=== PATIENT | male | born 1995 | race Caucasian/White ===

== ENCOUNTER 2016-11-26 21:33 | Emergency (ER) | payer OTHER ==
[2016-11-26 21:39] VITALS: RESP 18
[2016-11-26] MEDS ORDERED: KETOROLAC 30 MG/ML 1 ML VIAL IVP STA (22:06)
--- NOTE | 2016-11-26 22:09 | ED ---
Anxiety HPI - General Chief Complaint: Anxiety Stated Complaint: Chest pain/SOB/Anxiety Time Seen by Provider: 11/26/16 21:55 Source: patient, RN notes reviewed Mode of arrival: ambulatory - History of Present Illness Initial Comments: Is a 21-year-old male who presents with complaints of left-sided chest pain sharp in nature 5/10 severity. It is associated with some shortness of breath. He states he's had for about a week it gets worse with deep breathing or movement. He states he is very anxious on the pain comes on. He's had no fevers chills nausea, sweats cough or phlegm production no history of heart disease. Is a smoker we started a stop he started one or 2 cigarettes today from a pack-a-day. MD Complaint: anxiety, shortness of breath, other - Related Data Home Medications: Home Medications Medication Instructions Recorded Confirmed Aspirin 650 mg PO ONCE PRN 11/26/16 11/26/16 Previous Rx's Medication Instructions Recorded Ibuprofen 800 mg PO Q6HR PRN #20 tablet 11/26/16 Allergies/Adverse Reactions: Allergies Allergy/AdvReac Type Severity Reaction Status Date / Time amoxicillin Allergy Rash/Hives Verified 11/26/16 21:49 cat dander Allergy Swelling Verified 11/26/16 21:49 Review of Systems ROS Statement: Those systems with pertinent positive or pertinent negative responses have been documented in the HPI. ROS Other: All systems not noted in ROS Statement are negative. Past Medical History Past Medical History: No Reported History History of Any Multi-Drug Resistant Organisms: None Reported Past Surgical History: No Surgical Hx Reported Past Psychological History: Anxiety, Depression Smoking Status: Current every day smoker Past Alcohol Use History: None Reported Past Drug Use History: Marijuana General Exam - General Exam Comments Initial Comments: This is a well-developed well-nourished awake alert oriented 3 male Limitations: no limitations General appearance: alert, anxious Head exam: Present: atraumatic, normocephalic, normal inspection Eye exam: Present: normal appearance, PERRL, EOMI. Absent: scleral icterus, conjunctival injection, periorbital swelling ENT exam: Present: normal exam, mucous membranes moist Neck exam: Present: normal inspection. Absent: tenderness, meningismus, lymphadenopathy Respiratory exam: Present: normal lung sounds bilaterally, chest wall tenderness (Reproducible tennis palpation over left costochondral margin. Crepitation). Absent: respiratory distress, wheezes, rales, rhonchi, stridor Cardiovascular Exam: Present: regular rate, normal rhythm, normal heart sounds. Absent: systolic murmur, diastolic murmur, rubs, gallop, clicks GI/Abdominal exam: Present: soft, normal bowel sounds. Absent: distended, tenderness, guarding, rebound, rigid Extremities exam: Present: normal inspection, full ROM, normal capillary refill. Absent: tenderness, pedal edema, joint swelling, calf tenderness Back exam: Present: normal inspection Neurological exam: Present: alert, oriented X3, CN II-XII intact Psychiatric exam: Present: normal affect, normal mood Skin exam: Present: warm, dry, intact, normal color. Absent: rash Course Vital Signs 11/26/16 11/26/16 11/26/16 21:36 22:46 23:15 Temperature 98.7 F 97.8 F Pulse Rate 73 67 66 Respiratory 18 18 18 Rate Blood Pressure 126/73 118/68 111/60 O2 Sat by Pulse 99 98 99 Oximetry - Reevaluation(s) Reevaluation #1: 11/26/16 22:09 We did discuss smoking cessation and risks of smoking and the need to stop. This conversation lasted 3.1 minutes. Medical Decision Making - Medical Decision Making I did discuss findings with the patient initially improved the presentation is consistent with chest wall pain/costochondritis. Patient will be discharged home on anti-inflammatories is a follow-up with his doctor and return when necessary - Lab Data Result diagrams: 11/26/16 22:10 11/26/16 22:10 Lab Results 11/26/16 11/26/16 11/26/16 Range/Units 22:10 22:10 22:10 WBC 9.1 (4.0-11.0) k/uL RBC 4.58 (4.30-5.90) m/uL Hgb 12.5 L (13.0-17.5) gm/dL Hct 39.7 (39.0-53.0) % MCV 86.8 (80.0-100.0) fL MCH 27.2 (25.0-35.0) pg MCHC 31.4 (31.0-37.0) g/dL RDW 15.4 (11.5-15.5) % Plt Count 220 (150-450) k/uL Neutrophils % 60 % Lymphocytes % 30 % Monocytes % 4 % Eosinophils % 3 % Basophils % 1 % Neutrophils # 5.5 (1.3-7.7) k/uL Lymphocytes # 2.8 (1.0-4.8) k/uL Monocytes # 0.3 (0-1.0) k/uL Eosinophils # 0.3 (0-0.7) k/uL Basophils # 0.1 (0-0.2) k/uL PT (9.0-12.0) sec INR (<1.1) APTT (22.0-30.0) sec D-Dimer (<0.60) mg/L FEU Sodium 142 (137-145) mmol/L Potassium 4.0 (3.5-5.1) mmol/L Chloride 105 (98-107) mmol/L Carbon Dioxide 27 (22-30) mmol/L Anion Gap 10 mmol/L BUN 9 (9-20) mg/dL Creatinine 0.80 (0.66-1.25) mg/dL Est GFR (MDRD) Af Amer >60 (>60 ml/min/1.73 sqM) Est GFR (MDRD) Non-Af >60 (>60 ml/min/1.73 sqM) Glucose 96 (74-99) mg/dL Calcium 8.9 (8.4-10.2) mg/dL Magnesium 2.1 (1.6-2.3) mg/dL Total Bilirubin 0.2 (0.2-1.3) mg/dL AST 26 (17-59) U/L ALT 40 (21-72) U/L Alkaline Phosphatase 107 (38-126) U/L Total Creatine Kinase 217 H (55-170) U/L CK-MB (CK-2) 0.9 (0.0-2.4) ng/mL CK-MB (CK-2) Rel Index 0.4 Troponin I <0.012 (0.000-0.034) ng/mL Total Protein 6.7 (6.3-8.2) g/dL Albumin 3.9 (3.5-5.0) g/dL 11/26/16 Range/Units 22:10 WBC (4.0-11.0) k/uL RBC (4.30-5.90) m/uL Hgb (13.0-17.5) gm/dL Hct (39.0-53.0) % MCV (80.0-100.0) fL MCH (25.0-35.0) pg MCHC (31.0-37.0) g/dL RDW (11.5-15.5) % Plt Count (150-450) k/uL Neutrophils % % Lymphocytes % % Monocytes % % Eosinophils % % Basophils % % Neutrophils # (1.3-7.7) k/uL Lymphocytes # (1.0-4.8) k/uL Monocytes # (0-1.0) k/uL Eosinophils # (0-0.7) k/uL Basophils # (0-0.2) k/uL PT 10.2 (9.0-12.0) sec INR 1.0 (<1.1) APTT 26.5 (22.0-30.0) sec D-Dimer <0.17 (<0.60) mg/L FEU Sodium (137-145) mmol/L Potassium (3.5-5.1) mmol/L Chloride (98-107) mmol/L Carbon Dioxide (22-30) mmol/L Anion Gap mmol/L BUN (9-20) mg/dL Creatinine (0.66-1.25) mg/dL Est GFR (MDRD) Af Amer (>60 ml/min/1.73 sqM) Est GFR (MDRD) Non-Af (>60 ml/min/1.73 sqM) Glucose (74-99) mg/dL Calcium (8.4-10.2) mg/dL Magnesium (1.6-2.3) mg/dL Total Bilirubin (0.2-1.3) mg/dL AST (17-59) U/L ALT (21-72) U/L Alkaline Phosphatase (38-126) U/L Total Creatine Kinase (55-170) U/L CK-MB (CK-2) (0.0-2.4) ng/mL CK-MB (CK-2) Rel Index Troponin I (0.000-0.034) ng/mL Total Protein (6.3-8.2) g/dL Albumin (3.5-5.0) g/dL - EKG Data -: EKG Interpreted by Ia EKG shows normal: sinus rhythm, axis, intervals, QRS complexes, ST-T waves (EKG shows a sinus rhythm of 65 [place] 128 QRS 90 QT since QTC of 388/403 this is a normal-appearing EKG.) Rate: normal - Radiology Data Radiology results: report reviewed (I did review the imaging and report no acute findings are seen.), image reviewed Disposition Clinical Impression: Costochondritis, acute, Acute chest wall pain Disposition: HOME SELF-CARE Instructions: Generalized Anxiety Disorder (ED), Costochondritis (ED) Prescriptions: Ibuprofen 800 mg PO Q6HR PRN #20 tablet PRN Reason: Pain Referrals: Haseeb Rodriguez MD [Primary Care Provider] - 1-2 days
[2016-11-26 22:33] LABS: Basophils # (A) 0.1 k/uL (0-0.2); Basophils % (A) 1 %; CHCM 32.4; Eosinophils # (A) 0.3 k/uL (0-0.7); Eosinophils % (A) 3 %; HCT 39.7 % (39.0-53.0); HDW 2.68; HGB 12.5 gm/dL (13.0-17.5); Luc # (Auto) 0.17; Luc % (Auto) 2; Lymphocytes # (A) 2.8 k/uL (1.0-4.8); Lymphocytes % (A) 30 %; MCH 27.2 pg (25.0-35.0); MCHC 31.4 g/dL (31.0-37.0); MCV 86.8 fL (80.0-100.0); Mean Platelet Volume 7.7; Monocytes # (A) 0.3 k/uL (0-1.0); Monocytes % (A) 4 %; Neutrophils # (A) 5.5 k/uL (1.3-7.7); Neutrophils % (A) 60 %; RBC 4.58 m/uL (4.30-5.90); RDW 15.4 % (11.5-15.5); WBC 9.1 k/uL (4.0-11.0); WBC (Perox) 9.32
[2016-11-26 22:41] LABS: ALT 40 U/L (21-72); AST 26 U/L (17-59); Alkaline Phosphatase 107 U/L (38-126); Anion Gap 10 mmol/L; Blood Urea Nitrogen 9 mg/dL (9-20); Calcium 8.9 mg/dL (8.4-10.2); Carbon Dioxide 27 mmol/L (22-30); Chloride 105 mmol/L (98-107); Glucose 96 mg/dL (74-99); Magnesium 2.1 mg/dL (1.6-2.3); Non-African American GFR(MDRD) >60 (>60 ml/min/1.73 sqM); Sodium 142 mmol/L (137-145); Total Bilirubin 0.2 mg/dL (0.2-1.3); Total Protein 6.7 g/dL (6.3-8.2)
[2016-11-26 22:45] LABS: Partial Thromboplastin Time 26.5 sec (22.0-30.0); Prothrombin Time 10.2 sec (9.0-12.0)
[2016-11-26 23:06] LABS: Creatine Kinase 217 U/L (55-170)
[2016-11-26 23:17] LABS: Creatine Kinase MB 0.9 ng/mL (0.0-2.4); Troponin I <0.012 ng/mL (0.000-0.034)
[2016-11-27 00:16] VITALS: BP 137/62; PULSE 76; TEMP 97.5
--- NOTE | 2016-11-27 07:20 | XR ---
EXAMINATION TYPE: XR chest 2V DATE OF EXAM: 11/26/2016 COMPARISON: NONE HISTORY: Chest pain and anxiety. TECHNIQUE: Frontal and lateral views of the chest are obtained. FINDINGS: There is no focal air space opacity, pleural effusion, or pneumothorax seen. The cardiac silhouette size is within normal limits. The osseous structures are intact. IMPRESSION: No acute cardiopulmonary process.
== END 2016-11-27 00:16 | disposition home or self-care (01) ==
LOC: EC 21:33
DX: M94.0 Chondrocostal junction syndrome [Tietze] (principal); F17.210 Nicotine dependence, cigarettes, uncomplicated; Z88.0 Allergy status to penicillin; Z91.09 Other allergy status, other than to drugs and biological substances
CPT/HCPCS: 99284; 96374; 36415; 93005; 85379; 80053; 82550; 82553; 83735; 84484; 85025; 85610; 85730; 71020; J1885

== ENCOUNTER 2018-10-07 17:59 | Emergency (ER) | payer OTHER ==
[2018-10-07 18:14] VITALS: BP 125/69; PULSE 61; RESP 18; TEMP 98.7
[2018-10-07] MEDS ORDERED: DIAZEPAM 5 MG/ML 2 ML INJ IM STA (18:46)
[2018-10-07] MEDS ORDERED: KETOROLAC 60 MG/2 ML VIAL IM STA (18:46)
--- NOTE | 2018-10-07 18:53 | ED ---
Back Pain HPI - General Chief Complaint: Back Pain/Injury Stated Complaint: Back pain Time Seen by Provider: 10/07/18 18:19 Source: patient, RN notes reviewed Mode of arrival: ambulatory Limitations: no limitations - History of Present Illness Initial Comments: This a 22-year-old male presents emergency Department with chief complaint of back pain. Patient states he was carrying a heavy bag groceries in his right arm states that he started he was running when he states he twisted awkwardly and states she's had mid to low back pain for last 2 days. Patient was seen at [facility] yesterday was given Robaxin and naproxen. Patient states he has not helped. Patient states pain is unbearable. He did state the Toradol helped for short period of time. Patient denies any bowel bladder incontinence or retention. Denies any abdominal pain no nausea vomiting. Patient has not been doing any topicals, no heat and ice stretching. He did see a chiropractor who did one adjustment felt that it made it worse. Denies any chest pain or shortness of breath. - Related Data Home Medications Medication Instructions Recorded Confirmed Aspirin 650 mg PO ONCE PRN 11/26/16 11/26/16 Previous Rx's Medication Instructions Recorded Ibuprofen 800 mg PO Q6HR PRN #20 tablet 11/26/16 Cyclobenzaprine [Flexeril] 10 mg PO TID PRN #15 tab 10/07/18 Hydrocodone/Acetaminophen [[place] 1 tab PO Q6HR PRN #12 tab 10/07/18 5-325] Ketorolac [Toradol] 10 mg PO Q8HR #15 tab 10/07/18 Allergies Allergy/AdvReac Type Severity Reaction Status Date / Time amoxicillin Allergy Rash/Hives Verified 10/07/18 18:14 cat dander Allergy Swelling Verified 10/07/18 18:14 Review of Systems ROS Statement: Those systems with pertinent positive or pertinent negative responses have been documented in the HPI. ROS Other: All systems not noted in ROS Statement are negative. Past Medical History Past Medical History: No Reported History History of Any Multi-Drug Resistant Organisms: None Reported Past Surgical History: No Surgical Hx Reported Past Psychological History: Anxiety, Depression Smoking Status: Current some day smoker Past Alcohol Use History: None Reported Past Drug Use History: Marijuana General Exam Limitations: no limitations General appearance: alert, in no apparent distress Head exam: Present: atraumatic, normocephalic, normal inspection Neck exam: Present: normal inspection. Absent: tenderness, meningismus, lymphadenopathy Respiratory exam: Present: normal lung sounds bilaterally. Absent: respiratory distress, wheezes, rales, rhonchi, stridor Cardiovascular Exam: Present: regular rate, normal rhythm, normal heart sounds. Absent: systolic murmur, diastolic murmur, rubs, gallop, clicks GI/Abdominal exam: Present: soft, normal bowel sounds. Absent: distended, tenderness, guarding, rebound, rigid Back exam: Present: full ROM (Moderate discomfort), tenderness (Right mid to low back), paraspinal tenderness (Lower thoracic to lumbar), other (Normal straight leg raise). Absent: vertebral tenderness Neurological exam: Present: alert, oriented X3, CN II-XII intact, reflexes normal. Absent: motor sensory deficit Course Vital Signs 10/07/18 18:12 Temperature 98.7 F Pulse Rate 61 Respiratory 18 Rate Blood Pressure 125/69 O2 Sat by Pulse 98 Oximetry Medical Decision Making - Medical Decision Making 22-year-old male presented for mid to low back pain. Patient has mechanical strain, muscle spasms. Patient we given Toradol and Valium emergency department. Patient we discharged with Flexeril, [place] short course, Toradol orally. Return parameters were discussed. Patient has no red flag symptoms. Disposition Clinical Impression: Back strain, Back pain Disposition: HOME SELF-CARE Condition: Stable Instructions (If sedation given, give patient instructions): Acute Low Back Pain (ED) Additional Instructions: Please return to the Emergency Department if symptoms worsen or any other concerns. Prescriptions: Cyclobenzaprine [Flexeril] 10 mg PO TID PRN #15 tab PRN Reason: Muscle Spasm Hydrocodone/Acetaminophen [[place] 5-325] 1 tab PO Q6HR PRN #12 tab PRN Reason: Pain Ketorolac [Toradol] 10 mg PO Q8HR #15 tab Is patient prescribed a controlled substance at d/c from ED?: No Referrals: Haseeb Rodriguez MD [Primary Care Provider] - 1-2 days Time of Disposition: 18:52
== END 2018-10-07 19:17 | disposition home or self-care (01) ==
LOC: EC 17:59
DX: S39.012A Strain of muscle, fascia and tendon of lower back, initial encounter (principal); F17.200 Nicotine dependence, unspecified, uncomplicated; Z88.0 Allergy status to penicillin; Z91.048 Other nonmedicinal substance allergy status; X50.1XXA Overexertion from prolonged static or awkward postures, initial encounter; Y93.02 Activity, running
CPT/HCPCS: 99283; 96372 ×2; J3360; J1885

== ENCOUNTER 2019-11-06 02:51 | Emergency (ER) | payer OTHER ==
[2019-11-06 03:04] VITALS: BP 111/69; PULSE 80; RESP 16; TEMP 97.8
--- NOTE | 2019-11-06 03:18 | ED ---
Alcohol HPI - General Chief Complaint: Alcohol Stated Complaint: etoh Time Seen by Provider: 11/06/19 02:54 Source: EMS Mode of arrival: EMS Limitations: altered mental status - History of Present Illness Initial Comments: This patient is 24-year-old man brought by EMS to be evaluated for suspected alcohol intoxication. The patient had been involved in a Wager as to whether he did finish a bottle of tequila, which he states that he did. He then became very intoxicated and friends called EMS. The patient denies having any fall or injuries. He denies complaint other than nausea and vomiting. MD Complaint: alcohol intoxication Last Drink: just [employer] Previous Visits for Alcohol Intoxication?: No Recent Trauma: No Associated Symptoms: vomiting Treatments Prior to Arrival: none Chronic Alcohol Use: No - Related Data Previous Rx's Medication Instructions Recorded Cyclobenzaprine [Flexeril] 10 mg PO TID PRN #15 tab 10/07/18 Hydrocodone/Acetaminophen [[place] 1 tab PO Q6HR PRN #12 tab 10/07/18 5-325] Ketorolac [Toradol] 10 mg PO Q8HR #15 tab 10/07/18 Allergies Allergy/AdvReac Type Severity Reaction Status Date / Time amoxicillin Allergy Rash/Hives Verified 11/06/19 03:26 cat dander Allergy Swelling Verified 11/06/19 03:26 Review of Systems ROS Statement: Those systems with pertinent positive or pertinent negative responses have been documented in the HPI. ROS Other: All systems not noted in ROS Statement are negative. Limitations: ROS unobtainable due to patients medical condition (Intoxication) Respiratory: Denies: dyspnea Cardiovascular: Denies: chest pain Gastrointestinal: Reports: vomiting. Denies: abdominal pain Musculoskeletal: Denies: back pain Neurological: Denies: headache Past Medical History Past Medical History: No Reported History History of Any Multi-Drug Resistant Organisms: None Reported Past Surgical History: No Surgical Hx Reported Past Psychological History: Anxiety, Depression Smoking Status: Current some day smoker Past Alcohol Use History: None Reported Past Drug Use History: Marijuana General Exam General appearance: in no apparent distress, appears intoxicated Head exam: Present: atraumatic, normocephalic, normal inspection Eye exam: Present: normal appearance, PERRL, nystagmus. Absent: scleral icterus, conjunctival injection ENT exam: Present: normal oropharynx Neck exam: Present: normal inspection, full ROM. Absent: tenderness Respiratory exam: Present: normal lung sounds bilaterally. Absent: respiratory distress, wheezes, rales, rhonchi, stridor, chest wall tenderness Cardiovascular Exam: Present: regular rate, normal rhythm, normal heart sounds. Absent: systolic murmur, diastolic murmur, rubs, gallop GI/Abdominal exam: Present: soft. Absent: distended, tenderness, guarding, rebound, pulsatile mass Extremities exam: Present: normal inspection, normal capillary refill. Absent: pedal edema, calf tenderness Back exam: Present: normal inspection. Absent: CVA tenderness (R), CVA tenderness (L), vertebral tenderness Neurological exam: Present: altered, CN II-XII intact, other (Patient is somnolent but arousable. GCS is 14.). Absent: motor sensory deficit Skin exam: Present: warm, dry, intact, normal color. Absent: rash Course Vital Signs 11/06/19 02:58 Temperature 97.8 F Pulse Rate 80 Respiratory 16 Rate Blood Pressure 111/69 O2 Sat by Pulse 96 Oximetry Disposition Clinical Impression: Alcoholic intoxication Disposition: HOME SELF-CARE Condition: Good Instructions (If sedation given, give patient instructions): Alcohol Intoxication (ED) Is patient prescribed a controlled substance at d/c from ED?: No Referrals: Haseeb Rodriguez MD [Primary Care Provider] - 1-2 days
== END 2019-11-06 05:42 | disposition home or self-care (01) ==
LOC: EC 02:51
DX: F10.129 Alcohol abuse with intoxication, unspecified (principal); F17.200 Nicotine dependence, unspecified, uncomplicated; Z88.0 Allergy status to penicillin; Z91.048 Other nonmedicinal substance allergy status
CPT/HCPCS: 99284

== ENCOUNTER 2021-05-19 17:50 | Emergency (ER) | payer OTHER ==
[2021-05-19 18:47] VITALS: TEMP 98.9
[2021-05-19] MEDS ORDERED: KETOROLAC 15 MG/ML 1 ML VIAL IM STA (19:00)
[2021-05-19] MEDS ORDERED: DEXAMETHASONE SOD PHOSPHATE 10 MG/ML 1 ML VIAL IM STA (19:00)
--- NOTE | 2021-05-19 19:07 | ED ---
General Adult HPI - General Chief complaint: ENT Stated complaint: fever, chills, sore throat Time Seen by Provider: 05/19/21 18:53 Source: patient Mode of arrival: ambulatory Limitations: no limitations - History of Present Illness Initial comments: 25 year-old male patient presents to the emergency department for evaluation of sore throat and swollen tonsils. States that he has been having trouble for the last month. He has completed two courses of antibiotics he'll feel better for a couple of days then get sick again. States that he has had COVID twice and seems like he gets sick easier after his second episode. He states he did have fever 102 degrees earlier today. Took 1g Tylenol last at 4pm. Denies any vomiting, abdominal pain, headache, or rash. States he does have body aches and chills. - Related Data Home Medications Medication Instructions Recorded Confirmed Acetaminophen [Tylenol] 2,000 mg PO BID PRN 05/19/21 05/19/21 Previous Rx's Medication Instructions Recorded Clindamycin [Cleocin] 450 mg PO Q6H #120 cap 05/19/21 Allergies Allergy/AdvReac Type Severity Reaction Status Date / Time amoxicillin Allergy Rash/Hives Verified 05/19/21 20:51 cat dander Allergy Swelling Verified 05/19/21 20:51 Review of Systems ROS Statement: Those systems with pertinent positive or pertinent negative responses have been documented in the HPI. ROS Other: All systems not noted in ROS Statement are negative. Past Medical History Past Medical History: No Reported History History of Any Multi-Drug Resistant Organisms: None Reported Past Surgical History: No Surgical Hx Reported Past Psychological History: Anxiety, Depression Smoking Status: Vaper Past Alcohol Use History: None Reported Past Drug Use History: Marijuana General Exam Limitations: no limitations General appearance: alert, in no apparent distress, other (This is a well- developed, well-nourished adult male in no acute distress.) ENT exam: Present: mucous membranes moist. Absent: normal oropharynx (Bilateral tonsillar hypertrophy, erythema, exudate noted. Tonsils are symmetric. Uvula is midline. Patient does have hot potato voice.) Neck exam: Present: normal inspection. Absent: tenderness, meningismus, lymphadenopathy Respiratory exam: Present: normal lung sounds bilaterally. Absent: respiratory distress, wheezes, rales, rhonchi, stridor Cardiovascular Exam: Present: regular rate, normal rhythm, normal heart sounds. Absent: systolic murmur, diastolic murmur, rubs, gallop, clicks GI/Abdominal exam: Present: soft, normal bowel sounds. Absent: distended, tenderness, guarding, rebound, rigid Neurological exam: Present: alert, oriented X3, CN II-XII intact Psychiatric exam: Present: normal affect, normal mood Skin exam: Present: warm, dry, intact, normal color. Absent: rash Course Vital Signs 05/19/21 05/19/21 18:45 22:10 Temperature 98.9 F Pulse Rate 90 72 Respiratory 16 18 Rate Blood Pressure 99/71 107/78 O2 Sat by Pulse 97 96 Oximetry Medical Decision Making - Medical Decision Making 25-year-old male patient presented for evaluation of swollen tonsils and sore throat for the last 2 days. Physical examination did reveal bilateral tonsillar hypertrophy and exudate. He is afebrile at this time the did have fever earlier today. He tested negative for strep and Covid. He did have a negative heterophile as well. CT of the soft tissues neck were obtained and showed no acute abnormalities. This is the patient's third tonsil infection over the last month. He'll be started on clindamycin discharge follow-up with ENT specialist. Return parameters were discussed in detail. He verbalizes understanding and agrees with this plan. My attending is Dr. Shi. - Lab Data Lab Results 05/19/21 05/19/21 05/19/21 Range/Units 18:49 19:26 19:31 Coronavirus (PCR) Not Detected (Not Detectd) Heterophile Antibody Negative (Negative) Group A Strep Rapid Negative (Negative) - Radiology Data Radiology results: report reviewed, image reviewed CT soft tissue neck with contrast was obtained. Report was reviewed in its entirety. Impression by Dr. Harrison shows no significant abnormality. Disposition Clinical Impression: Tonsillitis Disposition: HOME SELF-CARE Condition: Good Instructions (If sedation given, give patient instructions): Tonsillitis (ED) Additional Instructions: Apply antibiotic prescription in full. Follow-up with ENT specialist as soon as possible. Return for any new, worsening, or concerning symptoms. If local ENT is unable to see you soon please call [facility] for appointment: [phone]. Prescriptions: Clindamycin [Cleocin] 450 mg PO Q6H #120 cap Is patient prescribed a controlled substance at d/c from ED?: No Referrals: Carlo Lanier, [Doctor of Osteopathic Medicine] - 1-2 days None,Stated [Primary Care Provider] - 1-2 days Time of Disposition: 21:55
--- NOTE | 2021-05-19 21:11 | CT ---
EXAMINATION TYPE: CT soft tissue neck w con DATE OF EXAM: 05/19/2021 9:02 PM COMPARISON: None available. HISTORY: Sore throat x1 month. CT DLP: 629.3 mGycm Automated exposure control for dose reduction was used. CONTRAST: CT scan of the neck is performed following with IV Contrast, patient injected with 100ml mL of Isovue 300. Axial images are obtained, coronal and sagittal reformatted images are reviewed. FINDINGS: The parapharyngeal, retropharyngeal and prevertebral spaces appear grossly preserved. The parotid and submandibular glands are within normal limits. Scattered borderline to mildly enlarge d cervical lymph nodes, likely reactive. The visualized airway and upper lungs grossly unremarkable. No acute osseous abnormality. IMPRESSION: No significant abnormality.
[2021-05-19] MEDS ORDERED: CLINDAMYCIN 150 MG CAP PO STA (21:56)
[2021-05-19 22:11] VITALS: BP 107/78; PULSE 72; RESP 18
== END 2021-05-19 22:12 | disposition home or self-care (01) ==
LOC: EC 17:50
DX: J03.90 Acute tonsillitis, unspecified (principal); Z20.822 Contact with and (suspected) exposure to COVID-19; F17.290 Nicotine dependence, other tobacco product, uncomplicated; F12.90 Cannabis use, unspecified, uncomplicated
CPT/HCPCS: 36415; 86308; 87081; 87430; 87635; 70491; 99284; 96372 ×2; J1100; J1885

== ENCOUNTER → 2021-11-10 | Outpatient (CLI) | payer OTHER ==
--- NOTE | 2021-11-10 14:53 | XR ---
EXAM TYPE: LUMBAR SPINE X RAY SERIES COMPARISON: NONE HISTORY: Pain TECHNIQUE: 3 views are submitted. FINDINGS: Alignment is anatomic. The pedicles are intact. The transverse processes are intact. There is no s pondylolysis or spondylolisthesis. 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 IMPRESSION: 1. No acute process. Correlate with MRI as clinically warranted.
== END | disposition home or self-care (01) ==
LOC: RADXRMAIN 14:32
PROVIDERS: ATTEND Emergency Medicine
DX: M54.50 Low back pain, unspecified (principal)
CPT/HCPCS: 72100

== ENCOUNTER 2023-07-06 05:48 | Emergency (ER) | payer OTHER ==
--- NOTE | 2023-07-06 06:32 | ED ---
General Adult HPI - General Stated complaint: DELMAR, low O2 Time Seen by Provider: 07/06/23 06:30 Source: patient, RN notes reviewed Mode of arrival: ambulatory Limitations: no limitations - History of Present Illness Initial comments: 27-year-old male presents emergency department with chief complaint of cough congestion shortness of breath. Patient states around midnight states he thought he was having some anxiety issues which she has had in the past but states that he noticed he had a fever, sweating, nausea and a headache. - Related Data Home Medications Medication Instructions Recorded Confirmed Levothyroxine Sodium [Synthroid] 50 mcg PO DAILY 07/07/22 07/06/23 Cetirizine HCl [Zyrtec] 10 mg PO DAILY PRN 07/06/23 07/06/23 Cholecalciferol (Vitamin D3) 75 mcg PO DAILY 07/06/23 07/06/23 [Vitamin D3 (3000 Iu)] Previous Rx's Medication Instructions Recorded Azithromycin [Zithromax Z Pack] 0 tab PO DIRECTED #6 tab 07/06/23 Allergies Allergy/AdvReac Type Severity Reaction Status Date / Time amoxicillin Allergy Rash/Hives Verified 07/06/23 11:02 cat dander Allergy Swelling Verified 07/06/23 11:02 Review of Systems ROS Statement: Those systems with pertinent positive or pertinent negative responses have been documented in the HPI. ROS Other: All systems not noted in ROS Statement are negative. Past Medical History Past Medical History: Thyroid Disorder Additional Past Medical History / Comment(s): history of occasional palpitations and fast heart rate, has seen DR for this and it is benign History of Any Multi-Drug Resistant Organisms: None Reported Past Surgical History: Tonsillectomy Past Anesthesia/Blood Transfusion Reactions: No Reported Reaction Past Psychological History: No Psychological Hx Reported Smoking Status: Former smoker, Vaper Past Alcohol Use History: Occasional Additional Past Alcohol Use History / Comment(s): smoked from the age of [age] Past Drug Use History: None Reported General Exam - General Exam Comments Initial Comments: Visual Physical Exam Vital signs reviewed General: Well-appearing, nontoxic, no acute distress. Head: Normocephalic, atraumatic Eyes: PERRLA, EOMI ENT: Airway patent Chest: Nonlabored breathing Skin: No visual rash, normal skin tone Neuro: Alert and oriented 3 Musculoskeletal: No gross abnormalities Limitations: no limitations General appearance: alert, in no apparent distress Head exam: Present: atraumatic, normocephalic, normal inspection Eye exam: Present: normal appearance, PERRL, EOMI. Absent: scleral icterus, conjunctival injection, periorbital swelling ENT exam: Present: normal exam, normal oropharynx, mucous membranes moist Neck exam: Present: normal inspection, full ROM. Absent: tenderness, meningismus, lymphadenopathy Respiratory exam: Present: normal lung sounds bilaterally. Absent: respiratory distress, wheezes, rales, rhonchi, stridor Cardiovascular Exam: Present: regular rate, normal rhythm, normal heart sounds. Absent: systolic murmur, diastolic murmur, rubs, gallop, clicks GI/Abdominal exam: Present: soft, normal bowel sounds. Absent: distended, tenderness, guarding, rebound, rigid Course Vital Signs 07/06/23 07/06/23 07/06/23 06:51 07:54 08:54 Temperature 98.1 F Pulse Rate 113 H 99 Respiratory 18 22 20 Rate Blood Pressure 97/66 99/54 O2 Sat by Pulse 96 95 Oximetry 07/06/23 07/06/23 07/06/23 10:58 11:31 12:42 Temperature 98.2 F Pulse Rate 82 89 78 Respiratory 18 20 18 Rate Blood Pressure 88/45 114/69 113/69 O2 Sat by Pulse 97 94 L 96 Oximetry 07/06/23 13:55 Temperature 98.1 F Pulse Rate 76 Respiratory 18 Rate Blood Pressure 112/72 O2 Sat by Pulse 96 Oximetry EKG Findings - EKG Comments: EKG Findings:: EKG Amira-A: 08 sinus rhythm rate 94 WA 140 QRS 98 QT/QTc 333/385 - EKG Results: EKG: interpreted by YANICK Medical Decision Making - Medical Decision Making I completed the quick note portion of this chart signed Tahir Morales PA-C Was pt. sent in by a medical professional or institution ([facility], FUNERAL PLANNING COUNSELOR, urgent care, hospital, or retirement...) When possible be specific @ -No Did you speak to anyone other than the patient for history (EMS, parent, family, police, friend...)? What history was obtained from this source @ -No Did you review nursing and triage notes (agree or disagree)? Why? @ -I reviewed and agree with nursing and triage notes Were old charts reviewed (outside hosp., previous admission, EMS record, old EKG, old radiological studies, urgent care reports/EKG's, retirement records)? Report findings @ -No old charts were reviewed Differential Diagnosis (chest pain, altered mental status, abdominal pain women, abdominal pain men, vaginal bleeding, weakness, fever, dyspnea, syncope, headache, dizziness, GI bleed, back pain, seizure, CVA, palpatations, mental health, musculoskeletal)? @ -COVID 19, RSV, influenza, pneumonia, acute bronchitis, URI, this list is not all inclusive EKG interpreted by me (3pts min.). @ -As above X-rays interpreted by me (1pt min.). @ -Chest x-ray shows no acute cardiopulmonary process CT interpreted by me (1pt min.). @ -CT chest angio negative for PE no acute findings, CT abdomen pelvis no evidence of acute intra-abdominal process there is noted splenomegaly U/S interpreted by me (1pt. min.). @ -None done What testing was considered but not performed or refused? (CT, X-rays, U/S, labs)? Why? @ -None What meds were considered but not given or refused? Why? @ -None Did you discuss the management of the patient with other professionals (professionals i.e. , PA, FUNERAL PLANNING COUNSELOR, lab, RT, psych nurse, group social worker, record changer assembler, teacher, child support case officer, residential case manager)? Give summary @ -No Was smoking cessation discussed for >3mins.? @ -No Was critical care preformed (if so, how long)? @ -No Were there social determinants of health that impacted care today? How? (H omelessness, low income, unemployed, alcoholism, drug addiction, transportation, low edu. Level, literacy, decrease access to med. care, custodial, rehab)? @ -No Was there de-escalation of care discussed even if they declined (Discuss DNR or withdrawal of care, Hospice)? DNR status @ -No What co-morbidities impacted this encounter? (DM, HTN, Smoking, COPD, CAD, Cancer, CVA, ARF, Chemo, Hep., AIDS, mental health diagnosis, sleep apnea, morbid obesity)? @ -[Anxiety Was patient admitted / discharged? Hospital course, mention meds given and route, prescriptions, significant lab abnormalities, going to OR and other pertinent info. @ discharge patient's chest x-ray, viral swabs unremarkable EKG shows no acute changes. Patient significant other at home has similar symptoms with fever, chills and bodyaches. Believe this is a viral URI patient will be discharged in stable condition return pressure discussed. Patient to have full workup including labs, CT with no acute findings. Blood pressure is improved. Patient states he feels greatly improved. Patient feels comfortable with discharge ret urn plans were discussed. Undiagnosed new problem with uncertain prognosis? @ -[No Drug Therapy requiring intensive monitoring for toxicity (Heparin, Nitro, Insulin, Cardizem)? @ -No Were any procedures done? @ -No Diagnosis/symptom? @ -[Viral URI Acute, or Chronic, or Acute on Chronic? @ -Acute Uncomplicated (without systemic symptoms) or Complicated (systemic symptoms)? @ -[uncomplicated Side effects of treatment? @ -No Exacerbation, Progression, or Severe Exacerbation? @ -No Poses a threat to life or bodily function? How? (Chest pain, [place], [place], pneumonia, PE, COPD, DKA, ARF, appy, cholecystitis, CVA, Diverticulitis, Homicidal, Suicidal, threat to staff... and all critical care pts) @ -No - Lab Data Result diagrams: 07/06/23 08:49 07/06/23 08:49 Lab Results 07/06/23 07/06/23 07/06/23 Range/Units 06:46 08:49 08:49 WBC 19.8 H (3.8-10.6) k/uL RBC 4.87 (4.30-5.90) m/uL Hgb 13.7 (13.0-17.5) gm/dL Hct 39.8 (39.0-53.0) % MCV 81.7 (80.0-100.0) fL MCH 28.2 (25.0-35.0) pg MCHC 34.5 (31.0-37.0) g/dL RDW 13.7 (11.5-15.5) % Plt Count 236 (150-450) k/uL MPV 7.0 Neutrophils % 90 % Lymphocytes % 7 % Monocytes % 2 % Eosinophils % 1 % Basophils % 0 % Neutrophils # 17.9 H (1.3-7.7) k/uL Lymphocytes # 1.3 (1.0-4.8) k/uL Monocytes # 0.4 (0-1.0) k/uL Eosinophils # 0.1 (0-0.7) k/uL Basophils # 0.1 (0-0.2) k/uL Sodium 136 L (137-145) mmol/L Potassium 4.1 (3.5-5.1) mmol/L Chloride 104 (98-107) mmol/L Carbon Dioxide 23 (22-30) mmol/L Anion Gap 9 mmol/L BUN 13 (9-20) mg/dL Creatinine 0.76 (0.66-1.25) mg/dL Est GFR (CKD-EPI)AfAm >90 (>60 ml/min/1.73 sqM) Est GFR (CKD-EPI)NonAf >90 (>60 ml/min/1.73 sqM) Glucose 103 H (74-99) mg/dL Plasma Lactic Acid Gil (0.7-2.0) mmol/L Calcium 9.0 (8.4-10.2) mg/dL Total Bilirubin 0.6 (0.2-1.3) mg/dL AST 22 (17-59) U/L ALT 25 (4-49) U/L Alkaline Phosphatase 106 (38-126) U/L Troponin I (0.000-0.034) ng/mL Total Protein 7.4 (6.3-8.2) g/dL Albumin 4.2 (3.5-5.0) g/dL Urine Color Urine Appearance (Clear) Urine pH (5.0-8.0) Ur Specific Barnes (1.001-1.035) Urine Protein (Negative) Urine Glucose (UA) (Negative) Urine Ketones (Negative) Urine Blood (Negative) Urine Nitrite (Negative) Urine Bilirubin (Negative) Urine Urobilinogen (<2.0) mg/dL Ur Leukocyte Esterase (Negative) Heterophile Antibody (Negative) Influenza Type A (PCR) Not Detected (Not Detectd) Influenza Type B (PCR) Not Detected (Not Detectd) RSV (PCR) Not Detected (Not Detectd) SARS-CoV-2 (PCR) Not Detected (Not Detectd) 07/06/23 07/06/23 07/06/23 Range/Units 08:49 08:49 08:49 WBC (3.8-10.6) k/uL RBC (4.30-5.90) m/uL Hgb (13.0-17.5) gm/dL Hct (39.0-53.0) % MCV (80.0-100.0) fL MCH (25.0-35.0) pg MCHC (31.0-37.0) g/dL RDW (11.5-15.5) % Plt Count (150-450) k/uL MPV Neutrophils % % Lymphocytes % % Monocytes % % Eosinophils % % Basophils % % Neutrophils # (1.3-7.7) k/uL Lymphocytes # (1.0-4.8) k/uL Monocytes # (0-1.0) k/uL Eosinophils # (0-0.7) k/uL Basophils # (0-0.2) k/uL Sodium (137-145) mmol/L Potassium (3.5-5.1) mmol/L Chloride (98-107) mmol/L Carbon Dioxide (22-30) mmol/L Anion Gap mmol/L BUN (9-20) mg/dL Creatinine (0.66-1.25) mg/dL Est GFR (CKD-EPI)AfAm (>60 ml/min/1.73 sqM) Est GFR (CKD-EPI)NonAf (>60 ml/min/1.73 sqM) Glucose (74-99) mg/dL Plasma Lactic Acid Gil 1.3 (0.7-2.0) mmol/L Calcium (8.4-10.2) mg/dL Total Bilirubin (0.2-1.3) mg/dL AST (17-59) U/L ALT (4-49) U/L Alkaline Phosphatase (38-126) U/L Troponin I <0.012 (0.000-0.034) ng/mL Total Protein (6.3-8.2) g/dL Albumin (3.5-5.0) g/dL Urine Color Urine Appearance (Clear) Urine pH (5.0-8.0) Ur Specific Barnes (1.001-1.035) Urine Protein (Negative) Urine Glucose (UA) (Negative) Urine Ketones (Negative) Urine Blood (Negative) Urine Nitrite (Negative) Urine Bilirubin (Negative) Urine Urobilinogen (<2.0) mg/dL Ur Leukocyte Esterase (Negative) Heterophile Antibody Negative (Negative) Influenza Type A (PCR) (Not Detectd) Influenza Type B (PCR) (Not Detectd) RSV (PCR) (Not Detectd) SARS-CoV-2 (PCR) (Not Detectd) 07/06/23 Range/Units 10:18 WBC (3.8-10.6) k/uL RBC (4.30-5.90) m/uL Hgb (13.0-17.5) gm/dL Hct (39.0-53.0) % MCV (80.0-100.0) fL MCH (25.0-35.0) pg MCHC (31.0-37.0) g/dL RDW (11.5-15.5) % Plt Count (150-450) k/uL MPV Neutrophils % % Lymphocytes % % Monocytes % % Eosinophils % % Basophils % % Neutrophils # (1.3-7.7) k/uL Lymphocytes # (1.0-4.8) k/uL Monocytes # (0-1.0) k/uL Eosinophils # (0-0.7) k/uL Basophils # (0-0.2) k/uL Sodium (137-145) mmol/L Potassium (3.5-5.1) mmol/L Chloride (98-107) mmol/L Carbon Dioxide (22-30) mmol/L Anion Gap mmol/L BUN (9-20) mg/dL Creatinine (0.66-1.25) mg/dL Est GFR (CKD-EPI)AfAm (>60 ml/min/1.73 sqM) Est GFR (CKD-EPI)NonAf (>60 ml/min/1.73 sqM) Glucose (74-99) mg/dL Plasma Lactic Acid Gil (0.7-2.0) mmol/L Calcium (8.4-10.2) mg/dL Total Bilirubin (0.2-1.3) mg/dL AST (17-59) U/L ALT (4-49) U/L Alkaline Phosphatase (38-126) U/L Troponin I (0.000-0.034) ng/mL Total Protein (6.3-8.2) g/dL Albumin (3.5-5.0) g/dL Urine Color Colorless Urine Appearance Clear (Clear) Urine pH 5.0 (5.0-8.0) Ur Specific Barnes 1.003 (1.001-1.035) Urine Protein Negative (Negative) Urine Glucose (UA) Negative (Negative) Urine Ketones Negative (Negative) Urine Blood Negative (Negative) Urine Nitrite Negative (Negative) Urine Bilirubin Negative (Negative) Urine Urobilinogen <2.0 (<2.0) mg/dL Ur Leukocyte Esterase Negative (Negative) Heterophile Antibody (Negative) Influenza Type A (PCR) (Not Detectd) Influenza Type B (PCR) (Not Detectd) RSV (PCR) (Not Detectd) SARS-CoV-2 (PCR) (Not Detectd) Disposition Clinical Impression: URI (upper respiratory infection), Leukocytosis Disposition: HOME SELF-CARE Condition: Stable Instructions (If sedation given, give patient instructions): Upper Respiratory Infection (ED) Additional Instructions: Please return to the Emergency Department if symptoms worsen or any other concerns. Prescriptions: Azithromycin [Zithromax Z Pack] 0 tab PO DIRECTED #6 tab Is patient prescribed a controlled substance at d/c from ED?: No Referrals: Lux Dias MD [Primary Care Provider] - 1-2 days Time of Disposition: 13:45
--- NOTE | 2023-07-06 07:22 | XR ---
EXAMINATION TYPE: XR chest 2V DATE OF EXAM: 07/06/2023 COMPARISON: 11/26/2016 HISTORY: Chest pain TECHNIQUE: Frontal and lateral views of the chest are obtained. FINDINGS: There is no focal air space opacity. No evidence for pneumothorax. No pleural effusion. The cardiac silhouette size is within normal limits. The osseous structures are grossly intact. IMPRESSION: 1. No acute cardiopulmonary process.
[2023-07-06] MEDS: SODIUM CHLORIDE 0.9% 2,000 ML IV ONE (09:02)
[2023-07-06 09:42] LABS: Basophils # (A) 0.1 k/uL (0-0.2); Basophils % (A) 0 %; Eosinophils # (A) 0.1 k/uL (0-0.7); Eosinophils % (A) 1 %; HCT 39.8 % (39.0-53.0); HGB 13.7 gm/dL (13.0-17.5); Lymphocytes # (A) 1.3 k/uL (1.0-4.8); Lymphocytes % (A) 7 %; MCH 28.2 pg (25.0-35.0); MCHC 34.5 g/dL (31.0-37.0); MCV 81.7 fL (80.0-100.0); Monocytes # (A) 0.4 k/uL (0-1.0); Monocytes % (A) 2 %; Neutrophils # (A) 17.9 k/uL (1.3-7.7); Neutrophils % (A) 90 %; Platelet Count 236 k/uL (150-450); RBC 4.87 m/uL (4.30-5.90); RDW 13.7 % (11.5-15.5); WBC 19.8 k/uL (3.8-10.6)
[2023-07-06 09:46] LABS: African American GFR (CKD) >90 (>60 ml/min/1.73 sqM); Albumin 4.2 g/dL (3.5-5.0); Carbon Dioxide 23 mmol/L (22-30); Non-African American GFR(CKD) >90 (>60 ml/min/1.73 sqM)
[2023-07-06 09:53] LABS: ALT 25 U/L (4-49); AST 22 U/L (17-59); Alkaline Phosphatase 106 U/L (38-126); Anion Gap 9 mmol/L; Blood Urea Nitrogen 13 mg/dL (9-20); Chloride 104 mmol/L (98-107); Glucose 103 mg/dL (74-99); Potassium 4.1 mmol/L (3.5-5.1); Sodium 136 mmol/L (137-145); Total Bilirubin 0.6 mg/dL (0.2-1.3); Total Protein 7.4 g/dL (6.3-8.2)
[2023-07-06] MEDS: KETOROLAC 15 MG/ML 1 ML VIAL IVP STA (10:34)
[2023-07-06 10:36] LABS: Appearance,Urine Clear (Clear); Bilirubin,Urine Negative (Negative); Blood,Urine Negative (Negative); Color,Urine Colorless; Glucose,Urine (UA) Negative (Negative); Ketones,Urine Negative (Negative); Leukocyte Esterase,Urine Negative (Negative); Nitrite,Urine Negative (Negative); Protein,Urine Negative (Negative); Specific Gravity,Urine 1.003 (1.001-1.035); Urobilinogen,Urine <2.0 mg/dL (<2.0)
--- NOTE | 2023-07-06 11:44 | CT ---
EXAMINATION TYPE: CT abdomen pelvis w con CT DLP: 1760 mGycm, Automated exposure control for dose reduction was used. DATE OF EXAM: 07/06/2023 11:37 AM COMPARISON: None CLINICAL INDICATION:Male, 27 years old with history of Pain, hypotension, fever; upper abdominal pain TECHNIQUE: Standard CT of the abdomen and pelvis following the administration of 100 cc of Isovue 3 00 IV contrast material. Coronal and sagittal reformats were performed. FINDINGS: LOWER CHEST: Please see dedicated CT chest for findings ABDOMEN LIVER: Diffusely hypoattenuating parenchyma. GALLBLADDER AND BILE DUCTS: Unremarkable. PANCREAS: Unremarkable. SPLEEN: Enlarged measuring 15.3 cm in CC dimension. ADRENAL GLANDS: Unremarkable. KIDNEYS AND URETERS: No evidence of hydronephrosis or renal calculus. The ureters are unremarkable. PELVIS BLADDER: Unremarkable REPRODUCTIVE: Unremarkable. ABDOMEN & PELVIS STOMACH AND BOWEL: Stomach and duodenum are unremarkable. No focal wall thickening or surrounding inf lammatory changes. The appendix is within normal limits. No evidence of bowel obstruction. PERITONEUM: No evidence of pneumoperitoneum or free fluid. VASCULATURE: No evidence of aortic aneurysm. MUSCULOSKELETAL: No acute osseous abnormalities LYMPH NODES: No gross evidence for lymphadenopathy. SOFT TISSUE/ABDOMINAL WALL: Fat filled left inguinal hernia. IMPRESSION: 1. Mild splenomegaly. Otherwise no acute process. 2. Hepatic steatosis.
--- NOTE | 2023-07-06 11:47 | CT ---
EXAMINATION TYPE: CT chest angio for PE CT DLP: 913 mGycm, Automated exposure control for dose reduction was used. DATE OF EXAM: 07/06/2023 11:41 AM COMPARISON: . Chest radiograph from same day CLINICAL INDICATION:Male, 27 years old with history of Pain, hypotension, fever; rule out PE TECHNIQUE/CONTRAST: CTA scan of the thorax is performed with IV Contrast, patient injected with 100 mL of Isovue 370, pul monary embolism protocol. MIP images are created and reviewed. FINDINGS: Pulmonary Artery: There is no evidence for a filling defect within the pulmonary vasculature to sugge st acute pulmonary embolism. The pulmonary artery is of normal size. Lungs/Pleura: No evidence of focal consolidation, pleural effusion or pneumothorax. Airway: Large airways are patent. Heart: Heart is within normal limits for size.. Vasculature: No evidence of aortic aneurysm. Mediastinum: No gross evidence of adenopathy. Musculoskeletal: No acute osseous abnormalities Soft Tissues: Bilateral gynecomastia. Lower neck: No significant findings. Upper Abdomen: Please refer to dedicated CT abdomen pelvis of the same day for findings. IMPRESSION: No evidence of pulmonary embolism or CT evidence for acute thoracic process.
[2023-07-06 13:08] VITALS: RESP 18
[2023-07-06 14:05] VITALS: BP 112/72; PULSE 76; TEMP 98.1
== END 2023-07-06 14:01 | disposition home or self-care (01) ==
LOC: EC 05:48
DX: J06.9 Acute upper respiratory infection, unspecified (principal); E07.9 Disorder of thyroid, unspecified; F17.290 Nicotine dependence, other tobacco product, uncomplicated; Z79.890 Hormone replacement therapy; Z20.822 Contact with and (suspected) exposure to COVID-19; Z88.0 Allergy status to penicillin; Z91.09 Other allergy status, other than to drugs and biological substances
CPT/HCPCS: 36415; 93005; 80053; 83605; 84484; 85025; 86308; 81003; 87040; 87636; 71046; 71275; 74177; 99285; 96365; 96375; 96361 ×3; J0696; J1885; Q9967

== ENCOUNTER → 2024-04-06 | Outpatient (CLI) | payer OTHER ==
--- NOTE | 2024-04-06 08:12 | MM ---
Reason for Exam: Clinical finding. Baseline mammogram. Indicated Problems: Palpable abnormality of the right side for 3 Month(s). Prior Study Comparison: Patient's first Mammogram. Tissue Density: There are scattered areas of fibroglandular density. Findings: Analyzed By CAD. There is flame-shaped subareolar density right greater than left compatible with gynecomastia. No significant mass, suspicious microcalcification, or other discrete abnormality is seen. Palpable marker placed over the right nipple. Overall Assessment: Incomplete: need additional imaging evaluation, BI-RAD 0 Management: Diagnostic Breast Ultrasound of the right breast. As ordered. [facility], , 04/06/2024 8:08 AM. Electronically signed and approved by: Pastora Lange M.D. Radiologist
--- NOTE | 2024-04-06 08:44 | USB ---
Reason for Exam: Clinical finding. Technique: Method: Whole Breast Handheld. Findings: The whole breast of the right breast, the axilla of the right breast and the retroareolar of the right breast were scanned. Targeted subareolar and periareolar right breast ultrasound including scanning of the axilla demonstrates subareolar irregular hypoechoic area radiating peripherally up to 3 cm away from the nipple. Findings are in keeping with gynecomastia. No suspicious solid mass. No axillary lymphadenopathy. Overall Assessment: Benign, BI-RAD 2 Management: Clinical Management of the right breast. Moderate right-sided gynecomastia. We note mild gynecomastia on the left as well. Recommend clinical correlation as to possible causes in this patient. Surgical evaluation can be considered if desired. Results were given to the patient verbally at the time of exam. [facility], , 04/06/2024 8:41 AM. Electronically signed and approved by: Pastora Lange M.D. Radiologist
== END | disposition home or self-care (01) ==
LOC: RADMAMWWP 07:35
PROVIDERS: ATTEND Internal Medicine
CPT/HCPCS: 77062; 77066